=== PATIENT | female | born 1935 | race African-American/Black ===

== ENCOUNTER 2019-11-15 20:30 | Inpatient (IN) | payer MEDICARE ==
[~2019-11-15] VITALS: Ht 162.6 cm; Wt 57.2 kg
[2019-11-15 19:55] VITALS: BP 104/31
[~2019-11-15 20:30] MED LIST: ALLO100T PO; CYAN100096 PO; DOCU-150 PO; ESOM40CA PO; INSU3INS6 SUBCUT; SAXA2.5T PO
[2019-11-15] MEDS ORDERED: ZOLPIDEM TARTRATE 5MG TABLET PO PRN (21:30)
[2019-11-15] MEDS ORDERED: ACETAMINOPHEN 325MG TABLET PO PRN (21:30)
[2019-11-15] MEDS ORDERED: MORPHINE SULFATE 2 MG/ML CPJ (NOT FOR IM USE) IV PRN ×2 (21:30→23:30)
[2019-11-16] VITALS: BP 103/45
[2019-11-16 00:15] LABS: HEMOGLOBIN. 7.6 g/dL (12.0-16.0); MEAN CORPUSCULAR HEMOGLOBIN 29.1 pg (28.0-32.0); MEAN CORPUSCULAR VOLUME 91.8 fL (81.0-99.0); MEAN PLATELET VOLUME 9.1 fl (7.4-10.4); PLATELET 166 x1000/uL (130-400); RED BLOOD CELL COUNT 2.61 mill/uL (4.2-5.4); RED CELL DISTRIBUTION WIDTH 19.3 % (11.6-14.6)
[2019-11-16] MEDS ORDERED: HYDR-4134 PO (03:46)
[2019-11-16] MEDS ORDERED: COR3 PO (03:46)
[2019-11-16 04:00] VITALS: BP_SYST 100; BP_SYST 113; BP_DIAS 46; BP_DIAS 64
[2019-11-16 06:23] LABS: PLATELET ESTIMATE NORMAL
[2019-11-16 08:00] VITALS: BP 92/37
[2019-11-16] MEDS: CARVEDILOL 3.125 MG TABLET PO SCH ×2 (08:16→21:00)
[2019-11-16] MEDS ORDERED: HYDRALAZINE HCL 25MG TABLET PO SCH (09:00)
[2019-11-16] MEDS ORDERED: LIDOCAINE HCL 4% CREAM 76GM TUBE TP PRN (11:00)
[2019-11-16] MEDS: HYDROCODONE/ACETAMINOPHEN 5/325MG TABLET PO PRN ×2 (11:03→19:18)
[2019-11-16 12:00] VITALS: BP 94/35
[2019-11-16 16:40] VITALS: BP 97/33
[2019-11-16] MEDS ORDERED: BISACODYL 5MG TABLET PO NR (19:45)
[2019-11-16 20:00] VITALS: BP 104/39
[2019-11-16] MEDS: OMEPRAZOLE 20MG CAPSULE EXTENDED RELEASE PO SCH (21:09)
[2019-11-16] MEDS: LACTULOSE 20G/30ML UDC PO SCH (21:17)
[2019-11-16 21:55] LABS: HEMATOCRIT 26.3 % (36.0-48.0); HEMOGLOBIN 8.5 g/dL (12.0-16.0)
[2019-11-16 22:02] LABS: INR 1.2; PROTHROMBIN TIME 12.2 sec (9.6-11.0)
[2019-11-17] VITALS (7 sets, daily range): BP systolic 91–129; BP diastolic 33–58
[2019-11-17] MEDS: OMEPRAZOLE 20MG CAPSULE EXTENDED RELEASE PO SCH ×2 (06:31→21:35)
[2019-11-17] MEDS: DOCUSATE SODIUM 250MG CAPSULE PO SCH ×2 (09:00→16:02)
[2019-11-17] MEDS: CARVEDILOL 3.125 MG TABLET PO SCH ×2 (09:00→21:00)
[2019-11-17] MEDS: HYDROCODONE/ACETAMINOPHEN 5/325MG TABLET PO PRN (09:54)
[2019-11-17 10:28] LABS: HEMATOCRIT. 25.9 % (36.0-48.0); HEMOGLOBIN. 8.5 g/dL (12.0-16.0); MEAN CORPUSCULAR HEMOGLOBIN 29.6 pg (28.0-32.0); MEAN CORPUSCULAR VOLUME 90.2 fL (81.0-99.0); MEAN PLATELET VOLUME 9.3 fl (7.4-10.4); PLATELET 144 x1000/uL (130-400); RED BLOOD CELL COUNT 2.87 mill/uL (4.2-5.4); RED CELL DISTRIBUTION WIDTH 19.1 % (11.6-14.6)
[2019-11-17 10:41] LABS: PHOSPHORUS 3.6 mg/dL (2.5-4.9)
[2019-11-17] MEDS: CLINDAMYCIN 300 MG in DEXTROSE 5% WATER 50 ML IV SCH (17:52)
[2019-11-17] MEDS: LACTULOSE 20G/30ML UDC PO SCH (21:35)
[2019-11-18] VITALS: BP 101/41
[2019-11-18] MEDS: CLINDAMYCIN 300 MG in DEXTROSE 5% WATER 50 ML IV SCH ×2 (01:11→10:00)
[2019-11-18 04:00] VITALS: BP 106/43
[2019-11-18] MEDS: OMEPRAZOLE 20MG CAPSULE EXTENDED RELEASE PO SCH (05:38)
[2019-11-18 07:07] LABS: HEMATOCRIT. 25.6 % (36.0-48.0); HEMOGLOBIN. 8.4 g/dL (12.0-16.0); MEAN CORPUSCULAR HEMOGLOBIN 29.7 pg (28.0-32.0); MEAN CORPUSCULAR VOLUME 90.1 fL (81.0-99.0); MEAN PLATELET VOLUME 9.5 fl (7.4-10.4); PLATELET 144 x1000/uL (130-400); RED BLOOD CELL COUNT 2.84 mill/uL (4.2-5.4); RED CELL DISTRIBUTION WIDTH 18.9 % (11.6-14.6)
[2019-11-18 08:25] VITALS: BP 107/62
[2019-11-18] MEDS: DOCUSATE SODIUM 250MG CAPSULE PO SCH (09:00)
[2019-11-18] MEDS: HYDROCODONE/ACETAMINOPHEN 5/325MG TABLET PO PRN (09:13)
[2019-11-18] MEDS ORDERED: CLIN300C11 MT (09:31)
[2019-11-18] MEDS ORDERED: CARVEDILOL 6.25 MG TABLET PO SCH (09:52)
[2019-11-18 12:07] VITALS: BP 101/31
[2019-11-18 12:54] LABS: PLATELET ESTIMATE NORMAL
[2019-11-18 14:46] LABS: PLATELET ESTIMATE NORMAL
== END 2019-11-18 14:40 | disposition home or self-care (01) | DRG 291 ==
LOC: 6WST 20:30
PROVIDERS: ADMIT Specialist; ATTEND Internal Medicine
PROC: 5A1D70Z Performance of Urinary Filtration, Intermittent, Less than 6 Hours Per Day (ICD-10-PCS; principal; 2019-11-15)
PROC: 30233N1 Transfusion of Nonautologous Red Blood Cells into Peripheral Vein, Percutaneous Approach (ICD-10-PCS; 2019-11-16)
DX: I13.2 Hypertensive heart and chronic kidney disease with heart failure and with stage 5 chronic kidney disease, or end stage renal disease (principal); I50.23 Acute on chronic systolic (congestive) heart failure; N18.6 End stage renal disease; I82.621 Acute embolism and thrombosis of deep veins of right upper extremity; I42.0 Dilated cardiomyopathy; G90.8 Other disorders of autonomic nervous system; I27.20 Pulmonary hypertension, unspecified; E78.5 Hyperlipidemia, unspecified; E11.22 Type 2 diabetes mellitus with diabetic chronic kidney disease; D50.9 Iron deficiency anemia, unspecified; Z87.11 Personal history of peptic ulcer disease; Z99.2 Dependence on renal dialysis; Z95.810 Presence of automatic (implantable) cardiac defibrillator; Z79.4 Long term (current) use of insulin; Z82.49 Family history of ischemic heart disease and other diseases of the circulatory system; Z90.3 Acquired absence of stomach [part of]; Z90.710 Acquired absence of both cervix and uterus; Z88.8 Allergy status to other drugs, medicaments and biological substances; Z79.899 Other long term (current) drug therapy; Z98.49 Cataract extraction status, unspecified eye
CPT/HCPCS: 36415; 71045; 73130; 80048; 82270; 82728; 83540; 83550; 84100; 85014; 85018; 85025; 85384; 86850; 86870; 86900; 86920; 93005; 93970; 93971; 97116; 97162; J2270; J3490; J7060; P9016